=== PATIENT | female | born 1965 | race Caucasian/White ===

== ENCOUNTER 2017-08-22 16:09 | Emergency (ER) | payer BC, MEDICARE ==
[~2017-08-22] VITALS: Ht 160 cm; Wt 60.0 kg
[2017-08-22 16:16] VITALS: Ht 160 cm; Wt 60.0 kg
[2017-08-22] MEDS ORDERED: SOD CHLORIDE 0.9% 1,000 ML IV STA (16:27)
[2017-08-22] MEDS ORDERED: ONDANSETRON 4 MG INJ IV STA (16:27)
[2017-08-22] MEDS ORDERED: morphine 4 MG/ML VIAL IV STA ×2 (16:27→17:01)
[2017-08-22 17:07] LABS: BASOPHIL # 0.1 10^3/ul (0.0-0.1); BASOPHILS % 1.4 % (0.0-2.0); EOSINOPHILS # 0.3 10^3/ul (0.0-0.5); HEMATOCRIT 33.3 % (37.0-47.0); HEMOGLOBIN 10.9 g/dl (12.0-16.0); LYMPHOCYTES # 2.4 10^3/ul (0.8-2.9); LYMPHOCYTES % 45.6 % (15.0-51.0); MEAN CORPUSCULAR HEMOGLOBIN 31.1 pg (29.0-33.0); MEAN CORPUSCULAR HGB CONC 32.7 g/dl (32.0-37.0); MEAN CORPUSCULAR VOLUME 94.9 fl (82.0-101.0); MEAN PLATELET VOLUME 9.8 fl (7.4-10.4); MONOCYTE # 0.4 10^3/ul (0.3-0.9); MONOCYTES % 7.4 % (0.0-11.0); NEUTROPHILS % 39.4 % (39.0-77.0); PLATELET COUNT 217 10^3/UL (140-415); RED BLOOD COUNT 3.51 10^6/ul (4.20-5.40); RED CELL DISTRIBUTION WIDTH 13.2 % (11.5-14.5); WHITE BLOOD COUNT 5.2 10^3/ul (4.8-10.8)
[2017-08-22 17:16] LABS: ADD UMIC NO; UR ASCORBIC ACID NEGATIVE (NEGATIVE); UR BILIRUBIN (Dip) NEGATIVE (NEGATIVE); UR BLOOD (Dip) NEGATIVE (NEGATIVE); UR CLARITY CLEAR (CLEAR); UR COLOR STRAW (YELLOW); UR GLUCOSE (Dip) NEGATIVE (NEGATIVE); UR KETONES (Dip) NEGATIVE (NEGATIVE); UR LEUKOCYTE ESTERASE (Dip) NEGATIVE Leu/ul (NEGATIVE); UR NITRITE (Dip) NEGATIVE (NEGATIVE); UR SPECIFIC GRAVITY (Dip) 1.003 (1.003-1.030); UR TOTAL PROTEIN (Dip) NEGATIVE (NEGATIVE); UR UROBILINOGEN (Dip) NEGATIVE (NEGATIVE)
[2017-08-22 17:30] LABS: ALBUMIN 4.6 g/dl (3.3-4.9); ALBUMIN/GLOBULIN RATIO 1.43; BILIRUBIN,INDIRECT 0.3 mg/dl (0-1.1); BILIRUBIN,TOTAL 0.3 mg/dl (0.2-1.3); CALCIUM 9.4 mg/dl (8.4-10.2); CREATININE 0.9 mg/dl (0.44-1.00); POTASSIUM 4.2 mmol/L (3.5-5.1); TOTAL PROTEIN 7.8 g/dl (6.1-8.1)
[2017-08-22] MEDS ORDERED: LEVO25TA53 PO (18:23)
[2017-08-22] MEDS ORDERED: ONDA8TAB9 PO (18:24)
[2017-08-22] MEDS ORDERED: SUMA6VIA16 SQ (18:25)
--- NOTE | 2017-08-22 19:38 | RADRPT ---
PROCEDURE: US Pelvis. CLINICAL INDICATION: Right pelvic pain. TECHNIQUE: The pelvis was evaluated with transabdominal and transvaginal sonography in the axial a nd sagittal planes. COMPARISON: No prior study is available for comparison. FINDINGS: The uterus measures 7.9 x 4.2 x 5.2 cm. There is no uterine enlargement or mass. The endometrium is normal measuring 5.1 mm. The ovaries are not visualized. There is no other pelvic mass or free fluid . IMPRESSION: 1. Normal uterus and endometrium. 2. Ovaries not visualized. 3. Otherwise normal pelvic ultrasound. RPTAT: QQ .Lino Graham MD, MD Date Time Electronically viewed and signed by .Lino Graham MD, on 08/22/2017 19:38 .R/
[2017-08-22] MEDS ORDERED: LIDOCAINE/MYLANTA 40 ML BTL PO STA (19:45)
--- NOTE | 2017-08-22 19:45 | ERD ---
ER Documentation Chief Complaint Chief Complaint right pelvic pain radiating to back pain since yesterday HPI This is a 51-year-old female who presents to the emergency room for evaluation of abdominal pain. The patient localizes the abdominal pain to the lower portion of abdomen and states that she feels like she has a ruptured ovarian cyst. This patient does state that she is a history of ovarian cysts. She states that she has been taking turmeric for the pain however it has not improved and she came to the ER today for evaluation. The patient states that she has some radiation of the pain to her lower back however she denies any nausea, vomiting, chest pain, shortness of breath, vaginal discharge or vaginal bleeding. ROS All systems reviewed and are negative except as per history of present illness. Medications Home Meds Reported Medications Sumatriptan Succinate* (Imitrex* Inj) 6 Mg/0.5 Ml Vial, 6 MG SQ NEEDED, VIAL MAX 6 mg/dose, repeat in 1 hour if needed. MAX 12 mg/24 hours 08/22/17 Ondansetron Hcl* (Zofran*) 8 Mg Tablet, 8 MG PO NEEDED Y for NAUSEA AND OR VOMITING, TAB 08/22/17 Levothyroxine Sodium* (Levothyroxine Sodium*) 25 Mcg Tablet, 25 MCG PO BEFORE BREAKFAST, #30 TAB 08/22/17 Allergies Allergies: Coded Allergies: No Known Allergy (Unverified , 08/22/17) PMhx/Soc History of Surgery: Yes (HERNIATED DISC, LAPROSTOMY) Anesthesia Reaction: No Hx Neurological Disorder: No Hx Respiratory Disorders: No Hx Cardiac Disorders: No Hx Psychiatric Problems: No Hx Miscellaneous Medical Probl: Yes (DJD, OSTEOARTHRITIS, RA, HERNIATED DISC, THYROID, MIGRAINES) Hx Alcohol Use: No Hx Substance Use: No Hx Tobacco Use: Yes (STOPPED 10 YEARS AGO) Smoking Status: Former smoker Physical Exam Vitals Vital Signs Date Time Temp Pulse Resp B/P Pulse Ox O2 Delivery O2 Flow Rate FiO2 08/22/17 16:30 98.6 89 18 134/86 98 Room Air 08/22/17 16:16 97.2 78 20 96/52 100 Physical Exam INITIAL VITAL SIGNS: Reviewed by me GENERAL: The patient is well developed and appropriate for usual state of health in no apparent distress HEENT: Pupils equal, round, and reactive to light. EOMI. There is no scleral icterus. NECK: C-spine is soft and supple, there is no meningismus. There is no cervical lymphadenopathy. LUNGS: Clear to auscultation bilaterally. There are no rales, wheezes or rhonchi. HEART: Regular rate and rhythm, no murmurs, clicks, rubs or gallops. ABDOMEN: Pubic tenderness to palpation, negative McBurney point tenderness, negative Reyes sign, soft, non-tender, non-distended. There are bowel sounds in all four quadrants. No rebound or guarding. EXTREMITIES: There is no peripheral cyanosis or edema. No focal swelling or erythema. NEUROLOGICAL: The patient moves all four extremities with 5/5 strength. Cranial nerves II - XII are intact. Normal gait. Alert and oriented SKIN: There is no apparent rash or petechiae. HEME/LYMPHATIC: There is no evidence of excessive bruising or lymphedema. PSYCHIATRIC: The patient does not appear anxious or depressed. Result Diagram: 08/22/17 1655 08/22/17 1655 Results 24 hrs Laboratory Tests Test 08/22/17 16:35 08/22/17 16:55 Urine Color STRAW Urine Clarity CLEAR Urine pH 7.0 Urine Specific [place] 1.003 Urine Ketones NEGATIVEmg/dL Urine Nitrite NEGATIVEmg/dL Urine Bilirubin NEGATIVEmg/dL Urine Urobilinogen NEGATIVEmg/dL Urine Leukocyte Esterase NEGATIVELeu/ul Urine Hemoglobin NEGATIVEmg/dL Urine Glucose NEGATIVEmg/dL Urine Total Protein NEGATIVEmg/dl White Blood Count 5.210^3/ul Red Blood Count 3.5110^6/ul Hemoglobin 10.9g/dl Hematocrit 33.3% Mean Corpuscular Volume 94.9fl Mean Corpuscular Hemoglobin 31.1pg Mean Corpuscular Hemoglobin Concent 32.7g/dl Red Cell Distribution Width 13.2% Platelet Count 56620^3/UL Mean Platelet Volume 9.8fl Neutrophils % 39.4% Lymphocytes % 45.6% Monocytes % 7.4% Eosinophils % 6.0% Basophils % 1.4% Nucleated Red Blood Cells % 0.0/100WBC Neutrophils # 2.010^3/ul Lymphocytes # 2.410^3/ul Monocytes # 0.410^3/ul Eosinophils # 0.310^3/ul Basophils # 0.110^3/ul Nucleated Red Blood Cells # 0.010^3/ul Sodium Level 137mmol/L Potassium Level 4.2mmol/L Chloride Level 104mmol/L Carbon Dioxide Level 23mmol/L Anion Gap 14 Blood Urea Nitrogen 11mg/dl Creatinine 0.90mg/dl Glucose Level 87mg/dl Calcium Level 9.4mg/dl Total Bilirubin 0.3mg/dl Direct Bilirubin 0.00mg/dl Indirect Bilirubin 0.3mg/dl Aspartate Amino Transf (AST/SGOT) 31IU/L Alanine Aminotransferase (ALT/SGPT) 34IU/L Alkaline Phosphatase 47IU/L Total Protein 7.8g/dl Albumin 4.6g/dl Globulin 3.20g/dl Albumin/Globulin Ratio 1.43 Lipase 86U/L Current Medications Medications (Trade) Dose Ordered Sig/Sarah Beth Route PRN Reason Start Time Stop Time Status Last Admin Dose Admin Sodium Chloride (NS) 1,000 ml @ 1,000 mls/hr Q1H STAT IV 08/22/17 16:27 08/22/17 17:26 DC 08/22/17 16:54 Morphine Sulfate (morphine) 4 mg ONCE STAT IV 08/22/17 16:27 08/22/17 16:29 DC 08/22/17 17:00 Ondansetron HCl (Zofran Inj) 4 mg ONCE STAT IV 08/22/17 16:27 08/22/17 16:29 DC 08/22/17 16:54 Morphine Sulfate (morphine) 4 mg ONCE STAT IV 08/22/17 17:01 08/22/17 17:02 DC 08/22/17 17:07 Procedures/MDM Pelvic ultrasound:1. Normal uterus and endometrium. 2. Ovaries not visualized. 3. Otherwise normal pelvic ultrasound. This 51-year-old female presents to the ER for evaluation of abdominal pain. When I evaluated this patient she did have some suprapubic tenderness to palpation on my examination, she did not have any tenderness in the right lower quadrant, no CVA tenderness. She was given 4 mg of morphine and stated that she still had pain. She was given an additional 4 mg of morphine because she was refusing to go to ultrasound prior to receiving more pain meds. This patient underwent lab work which is within normal limits, urinalysis is within normal limits with no signs of bladder infection. Pelvic ultrasound does not reveal any free fluid. This patient will be discharged at this time with a prescription for Naprosyn. Differential diagnoses entertained was broad with potential high acuity. Patient has been evaluated for appendicitis, cholecystitis, and other high risk medical and surgical causes of abdominal pain. Ultimately the patient's evaluation is nondiagnostic. Based on the patient's lack of risk factors, as well as the patient's clinical, laboratory, and imaging data, the patient appears to be low risk for these high risk causes of abdominal pain. Departure Diagnosis: Primary Impression: Acute pain in female pelvis Condition: Stable KOSTAS JOSUE DO Aug 22, 2017 19:45
[2017-08-22] MEDS ORDERED: NAPR-260 PO (19:46)
[2017-08-22 20:20] VITALS: BP 122/73; PULSE 82; RESP 18; TEMP 98.6
== END 2017-08-22 20:20 | disposition home or self-care (01) ==
LOC: E/R 16:09
DX: R10.2 Pelvic and perineal pain (principal); R40.2252 Coma scale, best verbal response, oriented, at arrival to emergency department; R40.2142 Coma scale, eyes open, spontaneous, at arrival to emergency department; R40.2362 Coma scale, best motor response, obeys commands, at arrival to emergency department; Z87.891 Personal history of nicotine dependence
CPT/HCPCS: 76830; 76856; 80053; 81003; 83690; 85025; 96374; 96375; 99285; J2270; J2405; J7030